=== PATIENT | female | born 1960 | race Caucasian/White ===

== ENCOUNTER 2016-06-22 17:12 | Emergency (ER) | payer OTHER ==
[~2016-06-22] VITALS: Ht 152.4 cm; Wt 68.0 kg
[2016-06-22] MEDS ORDERED: METF500T PO (17:25)
[2016-06-22] MEDS ORDERED: GLIM4TAB3 PO (17:25)
--- NOTE | 2016-06-22 19:00 | NUR ---
Patient discharged to home in stable conditon WITH DAUGHTER TAKING PATIENT HOME. Written and verbal after care instructions given. Patient verbalizes understanding of instructions. WALKED OUT OF WITH STEADY GAIT
== END 2016-06-22 19:03 | disposition home or self-care (01) ==
LOC: ER 17:12
DX: J06.9 Acute upper respiratory infection, unspecified (principal); M19.90 Unspecified osteoarthritis, unspecified site; E11.9 Type 2 diabetes mellitus without complications
CPT/HCPCS: 71020; A4663

== ENCOUNTER 2018-10-01 23:13 | Emergency (ER) | payer OTHER ==
[~2018-10-01] VITALS: Ht 152.4 cm; Wt 72.6 kg
[~2018-10-01 23:13] MED LIST: GLIM4TAB3 PO; METF500T PO
--- NOTE | 2018-10-01 23:55 | NUR ---
DR PEARSON AT BEDSIDE FOR MSE.
[2018-10-02] MEDS ORDERED: IV NORMAL SALINE 1000 ML BAG IV ONE
--- NOTE | 2018-10-02 | NUR ---
PT WALKED INTO ER C/O DRY COUGH, BODY ACHE, CHILLS AND FEVER X3 DAYS. DAUGHTER AT BEDSIDE.
[2018-10-02 00:12] LABS: *BILIRUBIN,URIN NEGATIVE (NEGATIVE); *BLOOD, URINE NEGATIVE (NEGATIVE); *CLARITY,URINE CLEAR (CLEAR); *COLOR,URINE YELLOW (YELLOW); *KETONES,URINE NEGATIVE (NEGATIVE); *UROBILINOGEN,URINE 0.2 E.U./dl (NORMAL); LEUKOCYTE ESTERASE ,URINE NEGATIVE (NEGATIVE); NITRITE, URINE NEGATIVE (NEGATIVE); PH,URINE 7.5 (5.0-8.0); UGLUCOSE TRACE (NEGATIVE)
[2018-10-02 00:21] LABS: BASOPHILS # (AUTO) 0.1 K/uL (0.0-8.0); BASOPHILS % (AUTO) 0.9 % (0.0-2.0); EOSINOPHILS # (AUTO) 0.1 K/uL (0.0-0.7); EOSINOPHILS % (AUTO) 1.2 % (0.0-7.0); HEMOGLOBIN 13.7 g/dL (10.9-14.3); LYMPHOCYTES # (AUTO) 1.7 K/uL (20.0-40.0); LYMPHOCYTES % (AUTO) 17.2 % (20.5-51.5); MEAN CORPUSCULAR HEMOGLOBIN 25.1 uug (24.7-32.8); MEAN CORPUSCULAR HGB CONC 33 g/dL (32.3-35.6); MEAN CORPUSCULAR VOLUME 75.2 fL (75.5-95.3); MONOCYTES # (AUTO) 0.7 K/uL (2.0-10.0); MONOCYTES % (AUTO) 6.8 % (0.0-11.0); NEUTROPHILS # (AUTO) 7.2 K/uL (1.8-8.9); NEUTROPHILS % (AUTO) 73.9 % (38.5-71.5); PLATELET COUNT (AUTO) 218 K/uL (179-408); RED BLOOD CELL COUNT(AUTO) 5.45 MIL/uL (3.63-4.92); WHITE BLOOD COUNT (AUTO) 9.7 K/uL (3.8-11.8)
[2018-10-02 00:25] LABS: BACTERIA,URINE NONE SEEN /HPF (NONE SEEN); RBC,URINE 0-3 /HPF (0-3); SQUAMOUS EPITHELIAL CELL,UR FEW /HPF (NONE SEEN)
[2018-10-02 00:28] LABS: CREATININE 0.8 mg/dL (0.6-1.3); POTASSIUM 4.2 mmol/L (3.5-5.1)
[2018-10-02 00:41] LABS: BILIRUBIN,DIRECT 0.1 mg/dL (0.0-0.2); BILIRUBIN,TOTAL 0.4 mg/dL (0.2-1.0); TOTAL PROTEIN, SERUM 7.5 g/dL (6.4-8.2)
--- NOTE | 2018-10-02 00:41 | NUR ---
PT OUT OF ER FOR CXR.
[2018-10-02] MEDS ORDERED: DOXYCYCLINE HYCLATE 100 MG TABLET ONE (01:08)
[2018-10-02] MEDS ORDERED: IBUPROFEN 600 MG TABLET ONE (01:08)
[2018-10-02] MEDS ORDERED: DOXYCYCLINE HYCLATE 100 MG TABLET PO ONE (01:15)
[2018-10-02] MEDS ORDERED: IBUPROFEN 600 MG TABLET PO ONE (01:15)
--- NOTE | 2018-10-02 01:46 | NUR ---
IV removed. Catheter intact and site benign. Pressure and 4x4 gauze applied to site. No bleeding noted. Patient discharged to home in stable conditon, VSS. Written and verbal after care instructions given in both [place] and Nepali. Patient verbalizes understanding of instructions. Pt ambulated out of ER with steady gait. All belongings taken.
[2018-10-02 01:49] VITALS: BP 143/65
== END 2018-10-02 01:50 | disposition home or self-care (01) ==
LOC: ER 23:16
DX: J18.9 Pneumonia, unspecified organism (principal); M79.10 Myalgia, unspecified site; E11.9 Type 2 diabetes mellitus without complications; Z79.899 Other long term (current) drug therapy
CPT/HCPCS: 36415; 70030-TC; 71046; 83605; 85025; 87040; 93005; A4663; J7030

== ENCOUNTER 2018-10-09 22:14 | Emergency (ER) | payer OTHER ==
[~2018-10-09] VITALS: Ht 152.4 cm; Wt 77.1 kg
--- NOTE | 2018-10-09 22:30 | NUR ---
Patient ambulated with stable gait. A/Ox4. Speech clear, speaks in complete sentences. No neuro deficits noted. Patient came for c/o cough s/p being treated for PNA with oral ATB. Respiratory even and unlabored, with cough noted. No cardiovascular distress noted. All pulses palpable. No GI/ distress noted.
--- NOTE | 2018-10-09 22:47 | NUR ---
called respiratory for breathing treatment.
[2018-10-09] MEDS: ALBUTEROL SULFATE 2.5 MG/3 ML NEBU NEB ONE (22:51)
[2018-10-09] MEDS ORDERED: ALBUTEROL SULFATE 2.5 MG/3 ML NEBU ONE (22:55)
[2018-10-09] MEDS: BENZONATATE 100 MG CAPSULE PO ONE (23:01)
[2018-10-09] MEDS ORDERED: BENZONATATE 100 MG CAPSULE ONE (23:03)
--- NOTE | 2018-10-09 23:21 | NUR ---
Patient discharged to home in stable conditon. Written and verbal after care instructions given. Patient verbalizes understanding of instructions. Denies any acute sob, and states that shes feeling better. Patient ambulated with stable gait.
[2018-10-10 01:13] VITALS: BP 141/87
== END 2018-10-09 23:21 | disposition home or self-care (01) ==
LOC: ER 22:16
DX: J18.9 Pneumonia, unspecified organism (principal); E11.9 Type 2 diabetes mellitus without complications; Z79.899 Other long term (current) drug therapy
CPT/HCPCS: 71045; A4663